=== PATIENT | female | born 2000 | race African-American/Black ===

== ENCOUNTER 2018-07-08 00:50 | Emergency (ER) | payer OTHER ==
[~2018-07-08] VITALS: Ht 162.6 cm; Wt 86.2 kg
[2018-07-08 01:22] LABS: ABSOLUTE BASOPHILS 0.1 thou/uL (0.0-0.2); ABSOLUTE EOSINOPHILS 0.1 thou/uL (0.0-0.7); ABSOLUTE LYMPHOCYTES 3.2 thou/uL (0.8-5.3); ABSOLUTE MONOCYTES 0.8 thou/uL (0.0-1.2); BASOPHILS 0.6 %; HEMATOCRIT 38.6 % (37.0-47.0); LYMPHOCYTES 35.1 %; MCH 28.7 pg (26.0-34.0); MCHC 33.7 g/dL (28.0-37.0); MCV 85.2 fL (80.0-100.0); MONOCYTES 8.7 %; MPV 10.4 fl. (7.2-11.1); NUCLEATED RBCS 0 /100WBC; PLATELET COUNT* 207 thou/uL (150-400); POLYS 54.6 %; RBC 4.53 mil/uL (4.20-5.00); RDW-CV 13.7 % (10.5-14.5); WBC 9.2 thou/uL (4.0-11.0)
[2018-07-08 01:50] LABS: ANION GAP 11 mmol/L (7-16); BUN 18 mg/dL (7-18); CALCIUM 9.4 mg/dL (8.5-10.1); CHLORIDE 103 mmol/L (98-107); CO2 24 mmol/L (21-32); GLUCOSE 85 mg/dL (70-99); POTASSIUM 4.1 mmol/L (3.5-5.1); SODIUM 138 mmol/L (136-145)
[2018-07-08 01:56] LABS: ALBUMIN 3.9 g/dL (3.4-5.0); ALKALINE PHOSPHATASE 88 U/L (46-116); SGOT 28 U/L (15-37); SGPT 18 U/L (30-65); TOTAL BILIRUBIN 0.4 mg/dL (<0.1-1.0); TOTAL PROTEIN 8.2 g/dL (6.4-8.2); TROPONIN-I LEVEL <0.06 ng/mL (<0.06)
[2018-07-08 02:35] LABS: URINE BILIRUBIN NEGATIVE (Negative); URINE BLOOD 2+ (Negative); URINE CLARITY CLEAR; URINE COLOR STRAW; URINE GLUCOSE-RANDOM NEGATIVE (Negative); URINE KETONES NEGATIVE (Negative); URINE LEUKOCYTES-REFLEX TRACE (Negative); URINE NITRITE-REFLEX NEGATIVE (Negative); URINE PROTEIN NEGATIVE (Negative); URINE UROBILINOGEN 0.2 E.U./dl (0.2-1.0)
[2018-07-08 03:32] LABS: CASTS None Seen /LPF (None Seen); CRYSTALS None Seen /LPF (None Seen); SQUAMOUS >10 Many /LPF (0-3); URINE RBC 3-10 Few /HPF (0-2); URINE WBC-REFLEX 0-5 Rare /HPF (0-5)
[2018-07-08 04:00] VITALS: BP 146/84
--- NOTE | 2018-07-08 18:05 | EKG ---
[place] [address] ELECTROCARDIOGRAM REPORT Name: MALIHA BARRETT Room: [facility]#: [id number] Admission: 07/08/18 Attend Phys: Discharge: 07/08/18 Date of : [birth year] Report #: [id number] THIS REPORT FOR: //name// [facility] ED Test Date: 2018-07-08 Test Time: 00:58:23 Pat Name: MALIHA BARRETT Department: Room: Gender: F [employer]: [place] : 2000 Requested By: Lupe Ramos Order Number: [id number] MD: Adalberto Foster Measurements Intervals [place] Rate: 99 P: 90 MI: 155 QRS: 52 QRSD: 79 T: 25 QT: 324 QTc: 416 Interpretive Statements Sinus rhythm No previous ECG available for comparison Electronically Signed On 07-08-2018 18:05:23 [employer]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
== END 2018-07-08 04:00 | disposition home or self-care (01) ==
LOC: M.ERS 00:50
PROVIDERS: Personal Emergency Response Attendant
DX: K21.9 Gastro-esophageal reflux disease without esophagitis (principal)

== ENCOUNTER 2018-07-30 21:54 | Emergency (ER) | payer OTHER ==
[~2018-07-30] VITALS: Ht 162.6 cm; Wt 81.7 kg
[2018-07-30] MEDS ORDERED: NEXPLANON68 MG SQ (22:04)
[2018-07-30 23:56] VITALS: BP 124/87
== END 2018-07-30 23:56 | disposition home or self-care (01) ==
LOC: M.ERS 21:54
DX: R51 Headache (principal); R11.2 Nausea with vomiting, unspecified; Z98.890 Other specified postprocedural states